=== PATIENT | female | born 1945 | race Caucasian/White ===

== ENCOUNTER 2017-04-03 06:55 | Day surgery (SDC) | payer MEDICARE ==
[2017-04-03] MEDS ORDERED: Lactated Ringers 1,000 ML IV SCH (07:30)
[2017-04-03] MEDS ORDERED: Propofol 200 MG/20 ML SDV ONE ×2 (07:35→08:55)
[2017-04-03] MEDS ORDERED: fentaNYL 100 MCG/2 ML SDV ONE (07:35)
[2017-04-03] MEDS ORDERED: Midazolam 1 MG/ML 2 ML SDV ONE (07:36)
[2017-04-03 11:02] VITALS: BP 112/70
--- NOTE | 2017-04-04 09:30 | OR ---
DATE OF PROCEDURE: 04/03/2017 PREOPERATIVE DIAGNOSIS: Iron-deficiency anemia. POSTOPERATIVE DIAGNOSES: Hiatal hernia, gastritis with superficial erosions, colonic diverticulosis, pedunculated polyp 20 cm from the anal verge. PROCEDURES: Esophagogastroduodenoscopy with antral biopsies for CLOtest, sent for pathology to look for Helicobacter pylori. Colonoscopy to the cecum with snare cautery polypectomy of polyp 20 cm from the anal verge. ANESTHESIA: IV anesthesia with monitored anesthesia care. INDICATION: This 72-year-old white female is referred for upper and lower endoscopy. Indication for this is anemia. Her hemoglobin a few weeks ago was found to be 7. She says her last colonoscopic exam was done about 15 years ago. She has never had an upper endoscopy. I counseled her for the procedure including risks and alternatives, and she gave her informed consent to proceed. DESCRIPTION OF PROCEDURE: The patient was placed in the left lateral decubitus position. IV anesthesia was administered by the Anesthesia Service. Time-out was held. The flexible video Olympus upper endoscope was passed through her mouth, down her esophagus, and into her stomach. We did pass through a hiatal hernia, which was about 3 cm in length. In the stomach, we encountered superficial linear erosion emanating from the pylorus. There was also inflammation also consistent with gastritis. The scope was easily passed through the pylorus into the duodenum, reaching its 3rd portion. The scope was then slowly withdrawn, examining the mucosa throughout. The duodenal mucosa appeared unremarkable. The scope was brought back up through the pylorus into the antrum. We obtained antral biopsies for CLOtest and for pathology to look for Helicobacter pylori. The scope was retroflexed. The most proximal stomach appeared unremarkable except for the hiatal hernia. The scope was straightened and brought up to the hiatal hernia. The GE junction appeared unremarkable. The scope was then brought up through the unremarkable appearing esophagus and was removed. Next, a rectal exam was performed, which was unremarkable. The flexible video Olympus colonoscope was introduced through her anus, up her rectum, and out her colon all the way to the cecum. En route, we saw several left-sided diverticula. There was no bleeding or inflammation associated with any of them. Once the cecum was reached, the scope was slowly withdrawn, examining the mucosa throughout. No additional mucosal abnormalities were noted until we reached 20 cm from the anal verge. Here, a pedunculated polyp was seen, the snare was passed about its base, it was elevated up away from the bowel wall and amputated as electrocautery was applied. The polyp was aspirated up on the end of the scope and the scope was removed with the polyp retrieved from the end of the scope. The scope was reintroduced back into the colon and up to the polypectomy site. It was then withdrawn with no other lesions noted. The scope was retroflexed in the rectum with the distal rectum appearing unremarkable. The scope was straightened and removed. She tolerated the procedure well. Jung Gustafson MD /[id number]
== END 2017-04-03 11:04 | disposition home or self-care (01) ==
LOC: JP.SDS 06:55
PROVIDERS: ATTEND Surgery
DX: D12.6 Benign neoplasm of colon, unspecified (principal); D50.9 Iron deficiency anemia, unspecified; K29.30 Chronic superficial gastritis without bleeding; K44.9 Diaphragmatic hernia without obstruction or gangrene; K57.30 Diverticulosis of large intestine without perforation or abscess without bleeding
CPT/HCPCS: 87081; 88305; J2250; J2704; J3010; J7120

== ENCOUNTER 2021-10-27 22:07 | Emergency (ER) | payer MEDICARE, OTHER ==
[2021-10-27] MEDS ORDERED: Sodium Chloride 0.9% 10 ML Syringe FLUSH PRN (22:31)
[2021-10-27 23:19] LABS: ESTIMATED GFR 76 mL/min (>60)
[2021-10-27 23:21] LABS: TROPONIN I HIGH SENSITIVITY 175.4 pg/mL (<=60.3)
[2021-10-28] MEDS ORDERED: Heparin Sodium 5,000 Units/ML Vial IVPUSH ONE (03:00)
[2021-10-28] MEDS ORDERED: Heparin Sodium/D5W 25,000 UNITS/500 ML BAG IV SCH (03:00)
[2021-10-28 05:49] VITALS: PULSE 54
[2021-10-28 11:20] VITALS: BP 125/77
== END 2021-10-28 11:42 ==
LOC: JP.ED 22:07
DX: I35.0 Nonrheumatic aortic (valve) stenosis (principal); I21.4 Non-ST elevation (NSTEMI) myocardial infarction; Z88.8 Allergy status to other drugs, medicaments and biological substances; Z88.6 Allergy status to analgesic agent; Z79.899 Other long term (current) drug therapy; Z79.82 Long term (current) use of aspirin; Z90.49 Acquired absence of other specified parts of digestive tract; Z90.710 Acquired absence of both cervix and uterus
CPT/HCPCS: 36415; 71045; 80053; 83880; 84484; 85025; 85730; 86140; 93005; 96374; 96375; 99285; J1644; J3490

== ENCOUNTER 2021-11-03 20:24 | Emergency (ER) | payer MEDICARE ==
[2021-11-03] MEDS ORDERED: Sodium Chloride 0.9% 10 ML Syringe FLUSH PRN (20:25)
[2021-11-03] MEDS ORDERED: Amiodarone 150 MG/3 ML SDV IVPUSH ONE (20:33)
[2021-11-03 21:01] LABS: ESTIMATED GFR 76 mL/min (>60)
[2021-11-03 21:05] LABS: TROPONIN I HIGH SENSITIVITY 418.3 pg/mL (<=60.3)
[2021-11-03 21:51] VITALS: BP 100/67; PULSE 89
[2021-11-03] MEDS ORDERED: Propofol 200 MG/20 ML SDV ONE (23:43)
== END 2021-11-04 00:31 | disposition home or self-care (01) ==
LOC: JP.ED 20:24
DX: I48.91 Unspecified atrial fibrillation (principal); E78.00 Pure hypercholesterolemia, unspecified; M19.90 Unspecified osteoarthritis, unspecified site; E03.9 Hypothyroidism, unspecified; Z88.8 Allergy status to other drugs, medicaments and biological substances; Z79.82 Long term (current) use of aspirin; Z79.899 Other long term (current) drug therapy
CPT/HCPCS: 36415; 80053; 84439; 84443; 84484; 85025; 85379; 86140; 92960; 93005; 96365; 96366; 99285; J0282; J2704; J3490; J7060

== ENCOUNTER 2021-11-07 20:56 | Emergency (ER) | payer MEDICARE ==
[2021-11-07] MEDS ORDERED: Sodium Chloride 0.9% 10 ML Syringe FLUSH PRN (22:13)
[2021-11-07] MEDS ORDERED: Sodium Chloride 0.9% 1,000 ML IV SCH (22:15)
[2021-11-07] MEDS ORDERED: Sodium Chloride 0.9% 100 ML IV SCH (22:30)
[2021-11-07] MEDS ORDERED: Iopamidol 755 Mg/ML 100 ML Bottle IV SCH (22:30)
[2021-11-07 22:35] VITALS: BP 125/40; PULSE 60
[2021-11-07 22:47] LABS: ESTIMATED GFR 66 mL/min (>60)
[2021-11-07 22:49] LABS: TROPONIN I HIGH SENSITIVITY 88.3 pg/mL (<=60.3)
== END 2021-11-08 00:40 | disposition home or self-care (01) ==
LOC: JP.ED 20:56
DX: R41.3 Other amnesia (principal)
CPT/HCPCS: 36415; 70450; 70496; 70498; 80053; 83605; 84484; 85025; 93005; 96360; 96361; 99284; J3490; J7030; Q9967

== ENCOUNTER 2022-01-17 08:41 | Emergency (ER) | payer MEDICARE ==
[2022-01-17] MEDS ORDERED: Sodium Chloride 0.9% 500 ML IV ONE (09:00)
[2022-01-17] MEDS ORDERED: Magnesium Sulfate/Water 2 GM in Premix Bag 1 BAG IV ONE (09:07)
[2022-01-17] MEDS ORDERED: Propofol 200 MG/20 ML SDV ONE (09:20)
[2022-01-17 10:07] VITALS: PULSE 60
[2022-01-17 11:05] VITALS: BP 128/53
== END 2022-01-17 11:32 | disposition home or self-care (01) ==
LOC: JP.ED 08:41
DX: I47.1 Supraventricular tachycardia (principal); I48.91 Unspecified atrial fibrillation; E78.00 Pure hypercholesterolemia, unspecified; E03.9 Hypothyroidism, unspecified; Z95.2 Presence of prosthetic heart valve; Z88.8 Allergy status to other drugs, medicaments and biological substances; Z79.82 Long term (current) use of aspirin; Z79.899 Other long term (current) drug therapy
CPT/HCPCS: 36415; 71045; 80048; 82803; 83735; 83880; 84443; 84484; 85025; 92960; 93005; 96365; 96366; 99285; J2704; J3475; J7040

== ENCOUNTER 2022-03-18 17:35 | Emergency (ER) | payer MEDICARE ==
[2022-03-18 17:47] VITALS: BP 142/87; PULSE 158
[2022-03-18] MEDS ORDERED: Sodium Chloride 0.9% 10 ML Syringe FLUSH PRN (18:01)
[2022-03-18] MEDS ORDERED: Propofol 200 MG/20 ML SDV ONE (18:18)
== END 2022-03-18 19:09 | disposition home or self-care (01) ==
LOC: JP.ED 17:35
DX: U07.1 COVID-19 (principal); I48.91 Unspecified atrial fibrillation; I44.7 Left bundle-branch block, unspecified; M19.90 Unspecified osteoarthritis, unspecified site; E03.9 Hypothyroidism, unspecified; Z79.01 Long term (current) use of anticoagulants; Z79.82 Long term (current) use of aspirin; Z79.899 Other long term (current) drug therapy; Z88.8 Allergy status to other drugs, medicaments and biological substances
CPT/HCPCS: 36415; 80048; 83735; 84443; 84484; 85025; 92960; 93005; 93010; 99284; 99285-25; J2704; J3490

== ENCOUNTER 2022-08-17 01:10 | Emergency (ER) | payer MEDICARE, OTHER ==
[2022-08-17] MEDS ORDERED: Propofol 200 MG/20 ML SDV IVPUSH ONE (01:27)
[2022-08-17 01:37] LABS: BASOPHILS ABSOLUTE AUTO 0.08 K/uL (0.00-0.10); BASOPHILS PERCENT AUTO 0.9 % (0.1-1.3); EOSINOPHILS PERCENT AUTO 2.2 % (0.0-5.4); HEMATOCRIT 42.4 % (34.3-46.0); IMMATURE GRAN ABSOLUTE AUTO 0.03 K/uL (0.00-0.23); IMMATURE GRAN PERCENT AUTO 0.3 % (0.0-0.7); LYMPHOCYTES ABSOLUTE AUTO 1.24 K/uL (0.8-3.3); LYMPHOCYTES PERCENT AUTO 13.7 % (11.4-47.7); MEAN CORPUSCULAR HEMOGLOBIN 26.4 pg (31.6-35.5); MONOCYTES ABSOLUTE AUTO 0.68 K/uL (0.20-0.90); MONOCYTES PERCENT AUTO 7.5 % (3.3-12.6); NEUTROPHILS ABSOLUTE AUTO 6.83 K/uL (1.0-7.6); NEUTROPHILS PERCENT AUTO 75.4 % (40.0-78.1); PLATELET COUNT,PLT 356 K/uL (130-375); WHITE BLOOD CELL COUNT,WBC 9.1 K/uL (3.2-11.0)
[2022-08-17 01:44] LABS: CALCIUM 9.2 mg/dL (8.5-10.1); CREATININE 0.7 mg/dL (0.6-1.0); EST CRCL DRUG DOSING (CG) 50.79 mL/min; POTASSIUM,K 4.5 mmol/L (3.6-5.2)
[2022-08-17 01:45] LABS: ANION GAP 11.5 mmol/L (5.0-14.0)
[2022-08-17] MEDS ORDERED: Metoprolol Tartrate 50 MG Tab PO ONE (01:53)
[2022-08-17 01:56] VITALS: BP 108/64; PULSE 87
== END 2022-08-17 02:33 | disposition home or self-care (01) ==
LOC: JP.ED 01:10
DX: I48.91 Unspecified atrial fibrillation (principal); E78.00 Pure hypercholesterolemia, unspecified; E03.9 Hypothyroidism, unspecified; Z88.8 Allergy status to other drugs, medicaments and biological substances; Z79.82 Long term (current) use of aspirin; Z79.01 Long term (current) use of anticoagulants; Z86.16 Personal history of COVID-19; Z79.899 Other long term (current) drug therapy
CPT/HCPCS: 36415; 80048; 83735; 85025; 92960; 93005; 99285; A9270; J2704

== ENCOUNTER 2022-12-16 07:48 | Emergency (ER) | payer MEDICARE, OTHER ==
[2022-12-16 08:01] VITALS: BP 152/102; PULSE 160
[2022-12-16 08:06] LABS: BASOPHILS ABSOLUTE AUTO 0.08 K/uL (0.00-0.10); BASOPHILS PERCENT AUTO 1.1 % (0.1-1.3); EOSINOPHILS ABSOLUTE AUTO 0.16 K/uL (0.00-0.40); EOSINOPHILS PERCENT AUTO 2.2 % (0.0-5.4); HEMATOCRIT 44.7 % (34.3-46.0); HEMOGLOBIN 14.8 g/dL (11.2-15.5); IMMATURE GRAN PERCENT AUTO 0.3 % (0.0-0.7); LYMPHOCYTES ABSOLUTE AUTO 1.37 K/uL (0.8-3.3); LYMPHOCYTES PERCENT AUTO 18.7 % (11.4-47.7); MEAN CORPUSCULAR HEMOGLOBIN 27.6 pg (31.6-35.5); MEAN CORPUSCULAR HGB CONC 33.1 g/dL (31.6-35.5); MEAN CORPUSCULAR VOLUME 83.2 fL (81.4-99.0); MONOCYTES ABSOLUTE AUTO 0.55 K/uL (0.20-0.90); MONOCYTES PERCENT AUTO 7.5 % (3.3-12.6); NEUTROPHILS ABSOLUTE AUTO 5.16 K/uL (1.0-7.6); NEUTROPHILS PERCENT AUTO 70.2 % (40.0-78.1); PLATELET COUNT,PLT 398 K/uL (130-375); RED BLOOD CELL COUNT 5.37 M/uL (3.77-5.24); WHITE BLOOD CELL COUNT,WBC 7.3 K/uL (3.2-11.0)
[2022-12-16 08:07] LABS: IMMATURE GRAN ABSOLUTE AUTO 0.02 K/uL (0.00-0.23)
[2022-12-16] MEDS ORDERED: Midazolam 1 MG/ML 2 ML SDV IVPUSH ONE (08:09)
[2022-12-16] MEDS ORDERED: Naloxone 0.4 MG/ML SDV IVPUSH PRN (08:09)
[2022-12-16] MEDS ORDERED: fentaNYL 50 MCG/ML SDV IVPUSH ONE (08:09)
[2022-12-16] MEDS ORDERED: Sodium Chloride 0.9% 1,000 ML IV ONE (08:15)
[2022-12-16] MEDS ORDERED: Propofol 200 MG/20 ML SDV ONE (08:23)
[2022-12-16 08:25] LABS: ANION GAP 13.6 mmol/L (5.0-14.0); CALCIUM 9.2 mg/dL (8.5-10.1); CREATININE 0.9 mg/dL (0.6-1.0); EST CRCL DRUG DOSING (CG) 39.5 mL/min; POTASSIUM,K 4.6 mmol/L (3.6-5.2); TROPONIN I HIGH SENSITIVITY 25.9 pg/mL (<=60.3)
== END 2022-12-16 09:40 | disposition home or self-care (01) ==
LOC: JP.ED 07:48
DX: I47.20 Ventricular tachycardia, unspecified (principal); I44.7 Left bundle-branch block, unspecified; I48.91 Unspecified atrial fibrillation; M19.90 Unspecified osteoarthritis, unspecified site; E03.9 Hypothyroidism, unspecified; Z86.16 Personal history of COVID-19; Z79.01 Long term (current) use of anticoagulants; Z79.899 Other long term (current) drug therapy; Z79.82 Long term (current) use of aspirin; Z88.8 Allergy status to other drugs, medicaments and biological substances; Z88.1 Allergy status to other antibiotic agents
CPT/HCPCS: 36415; 80048; 83735; 84484; 85025; 92960; 93005; 99285; J2704

== ENCOUNTER 2024-07-20 08:41 | Emergency (ER) | payer MEDICARE, OTHER ==
[2024-07-20 09:18] LABS: BASOPHILS ABSOLUTE AUTO 0.06 K/uL (0.00-0.10); BASOPHILS PERCENT AUTO 0.9 % (0.1-1.3); EOSINOPHILS ABSOLUTE AUTO 0.14 K/uL (0.00-0.40); EOSINOPHILS PERCENT AUTO 2.1 % (0.0-5.4); HEMATOCRIT 41.5 % (34.3-46.0); HEMOGLOBIN 13.5 g/dL (11.2-15.5); IMMATURE GRAN PERCENT AUTO 0.3 % (0.0-0.7); LYMPHOCYTES ABSOLUTE AUTO 1.15 K/uL (0.8-3.3); LYMPHOCYTES PERCENT AUTO 16.9 % (11.4-47.7); MEAN CORPUSCULAR HEMOGLOBIN 27.4 pg (31.6-35.5); MEAN CORPUSCULAR HGB CONC 32.5 g/dL (31.6-35.5); MEAN CORPUSCULAR VOLUME 84.3 fL (81.4-99.0); MONOCYTES ABSOLUTE AUTO 0.61 K/uL (0.20-0.90); MONOCYTES PERCENT AUTO 8.9 % (3.3-12.6); NEUTROPHILS ABSOLUTE AUTO 4.84 K/uL (1.0-7.6); NEUTROPHILS PERCENT AUTO 70.9 % (40.0-78.1); PLATELET COUNT,PLT 372 K/uL (130-375); RED BLOOD CELL COUNT 4.92 M/uL (3.77-5.24); WHITE BLOOD CELL COUNT,WBC 6.8 K/uL (3.2-11.0)
[2024-07-20 09:24] LABS: INR 1.1
[2024-07-20] MEDS: Metoprolol Tartrate 5 MG/5 ML SDV IVPUSH ONE (09:27)
[2024-07-20] MEDS: Sodium Chloride 0.9% 1,000 ML IV ONE (09:27)
[2024-07-20] MEDS: LORazepam 2 MG/ML SDV IVPUSH ONE (09:28)
[2024-07-20 09:29] LABS: IMMATURE GRAN ABSOLUTE AUTO 0.02 K/uL (0.00-0.23)
[2024-07-20 09:36] LABS: A/G RATIO 0.9 (1.2-2.2); ALANINE AMINOTRANSFERASE,ALT 21 U/L (12-78); ALBUMIN 3.5 g/dL (3.4-5.0); ALKALINE PHOSPHATASE 101 U/L (46-116); ANION GAP 15.2 mmol/L (5.0-14.0); ASPARTATE AMNIOTRANSFERASE,AST 24 U/L (15-37); BILIRUBIN TOTAL 0.3 mg/dL (0.2-1.0); BLOOD UREA NITROGEN,BUN 19 mg/dL (7-18); CALCIUM 9.3 mg/dL (8.5-10.1); CARBON DIOXIDE,CO2 27 mmol/L (21-32); CHLORIDE,CL 98 mmol/L (100-108); CREATININE 0.8 mg/dL (0.6-1.0); EST CRCL DRUG DOSING (CG) 40.96 mL/min; ESTIMATED GFR 75 mL/min (>60); GLUCOSE RANDOM 122 mg/dL (74-106); MAGNESIUM 1.8 mg/dL (1.8-2.4); POTASSIUM,K 4.2 mmol/L (3.6-5.2); PROTEIN TOTAL,TP 7.3 g/dL (6.4-8.2); SODIUM,NA 136 mmol/L (140-148); TROPONIN I HIGH SENSITIVITY 28.5 pg/mL (<=60.3); TSH ULTRASENSITIVE 1.692 uIU/mL (0.358-3.740)
[2024-07-20 10:39] VITALS: BP 103/65; PULSE 108
== END 2024-07-20 12:05 | disposition home or self-care (01) ==
LOC: JP.ED 08:41
DX: R00.0 Tachycardia, unspecified (principal); I48.91 Unspecified atrial fibrillation; I25.2 Old myocardial infarction; I10 Essential (primary) hypertension; M19.90 Unspecified osteoarthritis, unspecified site; E03.9 Hypothyroidism, unspecified; Z86.73 Personal history of transient ischemic attack (TIA), and cerebral infarction without residual deficits; Z90.49 Acquired absence of other specified parts of digestive tract; Z90.710 Acquired absence of both cervix and uterus; Z79.82 Long term (current) use of aspirin; Z79.01 Long term (current) use of anticoagulants; Z79.890 Hormone replacement therapy; Z79.899 Other long term (current) drug therapy
CPT/HCPCS: 36415; 71045; 80053; 83605; 83735; 84443; 84484; 85025; 85610; 93005; 96361; 96374; 96375; 99285; J2060; J3490; J7030

== ENCOUNTER 2024-09-19 14:25 | Emergency (ER) | payer MEDICARE ==
[2024-09-19] MEDS ORDERED: Sodium Chloride 0.9% 10 ML Syringe FLUSH PRN (14:36)
[2024-09-19 14:41] LABS: BASOPHILS ABSOLUTE AUTO 0.06 K/uL (0.00-0.10); BASOPHILS PERCENT AUTO 0.9 % (0.1-1.3); EOSINOPHILS ABSOLUTE AUTO 0.16 K/uL (0.00-0.40); EOSINOPHILS PERCENT AUTO 2.3 % (0.0-5.4); IMMATURE GRAN ABSOLUTE AUTO 0.04 K/uL (0.00-0.23); IMMATURE GRAN PERCENT AUTO 0.6 % (0.0-0.7); LYMPHOCYTES ABSOLUTE AUTO 1.12 K/uL (0.8-3.3); LYMPHOCYTES PERCENT AUTO 15.9 % (11.4-47.7); MONOCYTES ABSOLUTE AUTO 0.60 K/uL (0.20-0.90); MONOCYTES PERCENT AUTO 8.5 % (3.3-12.6); NEUTROPHILS ABSOLUTE AUTO 5.05 K/uL (1.0-7.6); NEUTROPHILS PERCENT AUTO 71.8 % (40.0-78.1); PLATELET COUNT,PLT 345 K/uL (130-375); RED BLOOD CELL COUNT 4.70 M/uL (3.77-5.24); WHITE BLOOD CELL COUNT,WBC 7.0 K/uL (3.2-11.0)
[2024-09-19 14:53] LABS: BLOOD UREA NITROGEN,BUN 12.0 mg/dL (7-18); CARBON DIOXIDE,CO2 28.0 mmol/L (21-32); CHLORIDE,CL 101.0 mmol/L (100-108); CREATININE 0.9 mg/dL (0.6-1.0); EST CRCL DRUG DOSING (CG) 38.25 mL/min; ESTIMATED GFR 65.0 mL/min (>60); GLUCOSE RANDOM 116.0 mg/dL (74-106); POTASSIUM,K 3.7 mmol/L (3.6-5.2); SODIUM,NA 137.0 mmol/L (140-148)
[2024-09-19] MEDS: Diltiazem 25 MG/5 ML SDV IVPUSH ONE (15:00)
[2024-09-19] MEDS: Metoprolol Tartrate 5 MG/5 ML SDV IVPUSH ONE (15:43)
[2024-09-19 17:53] VITALS: BP 126/55; PULSE 53
== END 2024-09-19 18:00 | disposition home or self-care (01) ==
LOC: JP.ED 14:25
DX: I48.91 Unspecified atrial fibrillation (principal); E86.0 Dehydration; I10 Essential (primary) hypertension; M19.90 Unspecified osteoarthritis, unspecified site; E03.9 Hypothyroidism, unspecified; Z90.49 Acquired absence of other specified parts of digestive tract; Z90.710 Acquired absence of both cervix and uterus; Z88.8 Allergy status to other drugs, medicaments and biological substances; Z79.82 Long term (current) use of aspirin; Z79.01 Long term (current) use of anticoagulants; Z79.890 Hormone replacement therapy; Z79.899 Other long term (current) drug therapy
CPT/HCPCS: 36415; 80048; 83735; 84484; 85025; 93005; 96361; 96374; 96375; 99285-25; J3490; J7030